=== PATIENT | female | born 1955 | race Caucasian/White ===

== ENCOUNTER 2016-11-02 18:57 | Outpatient (CLI) | payer OTHER ==
--- NOTE | 2016-11-03 14:37 | Ultrasound Report ---
PELVIC ULTRASOUND: 11/02/2016 CLINICAL INDICATION: Postmenopausal bleeding. COMPARISON: 09/04/2014. TECHNIQUE: Transabdominal pelvic ultrasound performed for global evaluation. Transvaginal pelvic ultr asound performed for detailed evaluation. Real-time scanning performed and static images obtained. FINDINGS: The uterus is anteverted, measuring 9.4 x 5.8 x 4.5 cm. The endometrial echo complex is th ickened for a postmenopausal patient, measuring 6 mm. A posterior intramural leiomyoma is present, me asuring 3.0 x 2.6 x 1.8 cm. The ovaries are normal, with the right measuring 2.6 x 2.0 x 1.0 cm, and the left measuring 2.0 x 1.6 x 1.3 cm. No free fluid is present. IMPRESSION: THICKENED ENDOMETRIUM FOR A POSTMENOPAUSAL PATIENT. CORRELATION WITH ENDOMETRIAL BIOPSY IS RECOMMENDED. POSTERIOR INTRAMURAL LEIOMYOMA. JOB #: [id number] EXT JOB #:[id number]
== END 2016-11-02 18:58 | disposition home or self-care (01) ==
LOC: DI 18:57
PROVIDERS: ATTEND Naturopath
DX: R93.8 Abnormal findings on diagnostic imaging of other specified body structures (principal); D25.1 Intramural leiomyoma of uterus
CPT/HCPCS: 76856

== ENCOUNTER 2017-01-02 10:03 | Outpatient (CLI) | payer OTHER ==
--- NOTE | 2017-01-03 13:53 | Mammography Report ---
DIGITAL SCREENING MAMMOGRAM: 01/02/2017 COMPARISON: 09/03/2014. TECHNIQUE: Bilateral digital CC and MLO projections. FINDINGS: There are scattered fibroglandular densities. There is no dominant mass, skin thickening, architectural distortion, suspicious microcalcifications, or significant interval change. IMPRESSION: NEGATIVE. BIRADS CATEGORY 1-NEGATIVE. RECOMMENDATION: SUGGEST ROUTINE SCREENING IN ONE YEAR. STANDARD QUALIFYING STATEMENTS 1. This examination was reviewed with the aid of Computer-Aided Detection (CAD). 2. A negative or benign imaging report should not delay biopsy if clinically suspicious findings are present. Consider surgical consultation if warranted. More than 5% of cancers are not identified by i maging. 3. Dense breasts may obscure an underlying neoplasm. JOB #: [id number] EXT JOB #:[id number]
== END 2017-01-02 10:04 | disposition home or self-care (01) ==
LOC: DI 10:03
PROVIDERS: ATTEND Naturopath
DX: Z12.31 Encounter for screening mammogram for malignant neoplasm of breast (principal)
CPT/HCPCS: 77067

== ENCOUNTER 2017-01-02 10:03 | Outpatient (CLI) | payer OTHER ==
--- NOTE | 2017-01-04 10:07 | DEXA Report ---
DEXA SCAN: 01/02/2017 CLINICAL HISTORY: Rheumatoid arthritis, thyroid replacement therapy, postmenopausal. TECHNIQUE: Dual energy x-ray absorptiometry (DXA) was performed on a [employer] system. Regions measured are the AP spine, femoral neck, and, if needed, forearm. COMPARISON: None. In accordance with the International Society for Clinical Densitometry (ISCD) guidelines, data from previous exams may be reanalyzed using current recommendations and techniques. This is done to allow a more accurate basis for comparison with the current study. FINDINGS The data for the lumbar spine is as follows: REGION BMD (g/cm/cm) T-SCORE Z-SCORE L1 1.302 1.4 1.4 L2 1.412 1.8 1.8 L3 1.636 3.6 3.6 L4 1.478 2.3 2.3 TOTAL 1.461 2.3 2.3 NOTE: All evaluable vertebrae are used for classification. The data for the hip is as follows: REGION BMD (g/cm/cm) T-SCORE Z-SCORE Neck 1.113 0.5 1.0 TOTAL 1.167 1.3 1.3 NOTE: The femoral neck or total proximal femur, whichever is lowest, is used for classification. IMPRESSION: BONE MINERAL DENSITY IN THE LEFT HIP AND LUMBAR SPINE L1 THROUGH L4 ARE WITHIN NORMAL LIMITS FOR AGE. THE WHO CLASSIFICATION BASED ON THE INTERNATIONAL REFERENCE STANDARD IS NORMAL. THE FRACTURE RISK IS LOW. RECOMMENDATION: Patients with diagnosis of osteoporosis or osteopenia should have regular bone mineral density assessment. For those eligible for Medicare, routine testing is allowed once every 2 years. Testing frequency can be increased for patients who have rapidly progressing disease or for those who are receiving medical therapy to restore bone mass. COMMENT: World Health Organization (WHO) definitions for osteoporosis and osteopenia: NORMAL BMD: T-score at -1.0 or higher, fracture risk is low. OSTEOPENIA BMD: T-score between -1.0 and -2.5, fracture risk is increased. OSTEOPOROSIS BMD: T-score at -2.5 or lower, fracture risk high. National Osteoporosis Foundation recommends: 1. Obtain adequate dietary calcium (at least 1200 mg per day) and vitamin D (400 -800 international units per day). 2. Participate, as appropriate, in regular weightbearing and muscle- strengthening exercise. 3. Avoid tobacco use and reduce alcohol and caffeine intake. 4. For more detailed information see the website at www.NOF.org. MTDD
== END 2017-01-02 10:04 | disposition home or self-care (01) ==
LOC: DI 10:03
PROVIDERS: ATTEND Naturopath
DX: Z13.820 Encounter for screening for osteoporosis (principal)
CPT/HCPCS: 77080

== ENCOUNTER 2017-05-09 15:16 | Outpatient (CLI) | payer OTHER ==
--- NOTE | 2017-05-10 18:59 | Ultrasound Report ---
DATE OF SERVICE: 05/09/2017 PELVIC ULTRASOUND: 05/09/2017 CLINICAL INDICATION: Postmenopausal bleeding. TECHNIQUE: Transabdominal pelvic ultrasound performed for global evaluation. Transvaginal pelvic ultrasound performed for detailed evaluation. Real-time scanning performed and static images obtained. The uterus is anteverted, measuring 11.2 x 5.5 x 4.7 cm. The endometrium is thickened for a postmenopausal patient, measuring 7 mm. There is a posterior intramural leiomyoma, measuring 4.2 x 2.9 x 2.4 cm, and an anterior subserosal leiomyoma in the lower uterine segment, measuring 1.6 x 1.5 x 1.4 cm. Neither ovary was confidently identified on transabdominal or transvaginal imaging, but no adnexal mass is identified. No free fluid is present. IMPRESSION: 1. Thickened endometrium for a postmenopausal patient. Correlation with endometrial biopsy is recommended. 2. Two leiomyomas as above. TD: 05/10/2017 19:58
== END 2017-05-09 15:17 | disposition home or self-care (01) ==
LOC: DI 15:16
PROVIDERS: ATTEND Naprapath
DX: R93.8 Abnormal findings on diagnostic imaging of other specified body structures (principal); D25.1 Intramural leiomyoma of uterus; D25.2 Subserosal leiomyoma of uterus
CPT/HCPCS: 76830; 76856

== ENCOUNTER 2017-10-22 12:05 | Outpatient (CLI) | payer OTHER ==
[2017-10-22 12:28] LABS: BILIRUBIN,URINE NEGATIVE (NEGATIVE); GLUCOSE, URINE (UA) NEGATIVE (NEGATIVE); KETONES,URINE (UA) NEGATIVE (NEGATIVE); LEUKOCYTE ESTERASE, URINE NEGATIVE (NEGATIVE); NITRITE,URINE NEGATIVE (NEGATIVE); OCCULT BLOOD,URINE NEGATIVE (NEGATIVE); PROTEIN,URINE NEGATIVE (NEGATIVE); UROBILINOGEN,URINE 0.2 (NORMAL) E.U./dL (NORMAL)
[2017-10-22 12:30] LABS: CLARITY,URINE CLEAR (CLEAR); HCG UR QUAL NEGATIVE
[2017-10-22 13:18] LABS: BASOPHILS # (AUTO) 0.1 10^3/uL (0.0-0.1); BASOPHILS % (AUTO) 0.6 %; EOSINOPHILS # (AUTO) 0.2 10^3/uL (0.0-0.7); EOSINOPHILS % (AUTO) 1.9 %; HGB - HEMOGLOBIN 13.6 g/dL (12.0-16.0); LYMPHOCYTES # (AUTO) 1.8 10^3/uL (1.5-3.5); LYMPHOCYTES % (AUTO) 21.2 %; MEAN CORPUSCULAR HEMOGLOBIN 29.9 pg (27.0-31.0); MEAN CORPUSCULAR VOLUME 90.8 fL (81.0-99.0); MEAN PLATELET VOLUME 9.2 fL (7.9-10.8); MONOCYTES # (AUTO) 0.6 10^3/uL (0.0-1.0); MONOCYTES % (AUTO) 6.6 %; NEUTROPHILS % (AUTO) 69.7 %; PLT - PLATELET COUNT 280 10^3/uL (130-450); RED BLOOD COUNT 4.55 10^6/uL (4.20-5.40); RED CELL DISTRIBUTION WIDTH 13.6 % (12.0-15.0); WHITE BLOOD COUNT 8.7 x10^3/uL (4.8-10.8)
[2017-10-22 13:42] LABS: ALBUMIN 3.8 g/dL (3.2-5.5); BILIRUBIN,TOTAL 0.6 mg/dL (0.2-1.0); CALCIUM 9.1 mg/dL (8.5-10.3); CREATININE 0.6 mg/dL (0.4-1.0); TOTAL PROTEIN 7.7 g/dL (6.7-8.2)
== END 2017-10-22 12:06 | disposition home or self-care (01) ==
LOC: LAB 12:05
PROVIDERS: ATTEND Obstetrics & Gynecology
DX: Z01.812 Encounter for preprocedural laboratory examination (principal); D25.9 Leiomyoma of uterus, unspecified; N95.0 Postmenopausal bleeding
CPT/HCPCS: 36415; 80053; 81003; 81025; 85025; 86850; 86900; 86901

== ENCOUNTER 2017-10-24 06:13 | Day surgery (SDC) | payer OTHER ==
--- NOTE | 2017-10-23 08:04 | PREOP HISTORY & PHYSICAL ---
DATE OF SERVICE: 10/24/2017 Physician: Ronny Roberto MD DIAGNOSES 1. Abnormal uterine bleeding, postmenopausal bleeding. 2. Expanding uterine fibroid. 3. Endometrial biopsy negative for hyperplasia or carcinoma. INTENDED PROCEDURE: Laparoscopic-assisted vaginal hysterectomy with bilateral salpingectomy, possible oophorectomy. HISTORY OF PRESENT ILLNESS: Patient is a 62-year-old , 2, para 1-0-1-1, woman who has experienced several bouts of postmenopausal bleeding, and ultrasound documented 7 mm endometrium as well as two fibroids ranging up to 4 cm in size. Prior endometrial biopsy found no hyperplasia or malignancy. She continued to have postmenopausal bleeding since her endometrial biopsy, and this is disturbing. She wants complete therapy, and, after discussing various methods including hysteroscopy and hysteroscopic myomectomy, desires a hysterectomy. The risks and benefits were reviewed. She is aware of the possibility of bleeding, transfusion, infection, damage to urinary tract and intestines. She has discussed this, her treatment options on several occasions, and is finally settled on a hysterectomy. Informed consent paperwork was signed. The patient underwent menarche at 15, and estimates menopause at 56. Her last Pap smear in 12/2016 was normal. She has no prior history of abnormal Pap smears. PAST MEDICAL HISTORY 1. Patient has hypertension, is well controlled with hydrochlorothiazide. 2. She also has a history of dod-ahujznh-nveefzbip asthma, which is controlled with albuterol inhaler. 3. Hypothyroidism. 4. Patient has a distant history of HSV and HPV. Patient underwent an elective in 1980 at 8 weeks without sequela. The patient underwent a vaginal delivery at 40 weeks afterwards. Patient carries the label of attention deficit disorder. PAST SURGICAL HISTORY: Cholecystectomy. FAMILY HISTORY: No gynecological malignancies. Positive for arthritis, CVA and hypercholesterolemia. SOCIAL HISTORY: Happily . No drug, tobacco or alcohol use; BA degree in sociology; currently unemployed. ALLERGIES/SENSITIVITIES 1. SULFA. 2. CODEINE. 3. DOXYCYCLINE. 4. TRIMETHOPRIM. 5. ERYTHROMYCIN. PATIENT HAS TAKEN AMOXICILLIN AND CEPHALOSPORINS IN THE PAST. REVIEW OF SYSTEMS CONSTITUTIONAL: No malaise, fevers, chills or recent illnesses. HEENT: Negative. CARDIOVASCULAR: Reports no chest pain or rhythm irregularity. RESPIRATORY: Asthma in control. GASTROINTESTINAL: Negative. GENITOURINARY: Reference HPI. URINARY: The patient denies significant stress urinary incontinence or urgency. MUSCULOSKELETAL: Negative. SKIN: Negative. BREASTS: Negative. NEUROLOGIC: Negative. PSYCHOLOGIC: Carries label attention deficit disorder, but currently no symptoms other than a slight increase in anxiety. PHYSICAL EXAMINATION GENERAL: Well-groomed, pleasant demeanor, obese. LUNGS: Clear to auscultation. CARDIOVASCULAR: Regular. No murmur, no gallop. ABDOMEN: Obese, truncal obesity. No hepatosplenomegaly. No significant tenderness. EXTERNAL GENITALIA: No lesions, no atrophy. VAGINA: Small cystorectocele, not symptomatic. No incontinence on cough. CERVIX: No cervicitis. UTERUS: Seems large, probably at 8-10 week size, difficult to estimate due to obesity. ADNEXA: No adnexal tenderness or mass detected. EXTREMITIES: Moves all four extremities well. No pedal edema. SKIN: Increased pigmentation around the vulva. No suspicious lesions anywhere. LABORATORY/DATA: Preop labs pending. ASSESSMENT: The patient has had multiple bouts of postmenopausal bleeding with a negative endometrial biopsy. She has known uterine fibroids, which are probably the source of her bleeding. Bleeding is disruptive, and she desires a permanent solution. Hysteroscopy with hysteroscopic myomectomy was rejected. Operatively, patient has a history of asthma but no bleeding abnormalities. We had a detailed discussion contrasting hysterectomy to hysteroscopy on 2 different occasions. She is aware all surgery carries the risk of blood loss, transfusion, infection and organ damage. Hysterectomy has slightly more risk of blood loss and perforation in general injury of bowel bladder and urinary tract. At this point she is certain about her decision for hysterectomy but understands she can change her mind up until the time of surgery. PLAN: Laparoscopic-assisted vaginal hysterectomy with bilateral salpingectomy. Will spare the ovaries unless obviously diseased. During the nursing preop evaluation patient states that she reacted to Ancef and therefore Cleocin 900 mg IVPB will be given prophylactically prior to surgery given prophylactically. Prophylactic sequential compression boots will also be used. After surgery, will determine if patient needs to remain overnight. Regardless, do not estimate a hospitalization more than 72 hours. TD: 10/22/2017 12:35 SKYLER
[2017-10-24] MEDS ORDERED: ceFAZolin 3 GM/20 ML SYRINGE ONE (06:54)
[2017-10-24] MEDS ORDERED: LACTATED RINGERS 1,000 ML IV ONE ×2 (06:58→09:20)
[2017-10-24] MEDS ORDERED: SCOPOLAMINE PATCH TOP ONE (07:05)
[2017-10-24] MEDS ORDERED: BUPIVACAINE 0.25% PF 30 ML VIAL ONE (07:44)
[2017-10-24] MEDS ORDERED: BUPIVACAINE 0.25%-EPI 1:200000 PF 30 ML VIAL ONE (07:45)
--- NOTE | 2017-10-24 07:46 | OPERATIVE REPORT ---
Operative Report - General Planned Procedure: Laparoscopic assisted vaginal hysterectomy; bilateral salpingectomy; possib Pre-Op Diagnosis: Uterine leiomyoma (expanding); postmenopausal bleeding; prior Negative EMB; Procedure Performed: Laparoscopic assisted vaginal hysterectomy;: Bilateral salpingectomy, Cystoscopy Post Op Diagnosis: Same as above, await pathology - Procedure Note Primary Surgeon: Ronny Roberto MD FACOG Secondary Surgeon: Ronny Lecah MD, FACOG Anesthesia Provider: Roshan Ferrell, certified nurse face hardener Anesthesia Technique: General ET tube Pathology: Uterus and tubes to pathology IV Fluids (mL): 1,300 Estimated Blood Loss (mL): 120 Urine Output (mL): 200 Drain/Tube Type: Other (Mabry catheter, Clear urine) Complications: N0ne
[2017-10-24] MEDS ORDERED: BUPIVACAINE 0.25% PF 30 ML VIAL SUBQ ONE ×2 (08:51)
[2017-10-24] MEDS ORDERED: KETOROLAC 30 MG/ML VIAL IVP ONE (10:15)
[2017-10-24] MEDS ORDERED: ONDANSETRON 4 MG/2 ML VIAL IVP ONE (10:15)
[2017-10-24] MEDS ORDERED: fentaNYL 250 MCG/5 ML VIAL IVP ONE (10:15)
[2017-10-24] MEDS ORDERED: PROPOFOL 200 MG/20 ML VIAL IVP ONE (10:15)
[2017-10-24] MEDS ORDERED: NEOSTIGMINE 1 MG/1 ML 10 ML MDV IVP ONE (10:15)
[2017-10-24] MEDS ORDERED: ROCURONIUM 50 MG/5 ML VIAL IVP ONE (10:15)
[2017-10-24] MEDS ORDERED: GLYCOPYRROLATE 1 MG/5 ML VIAL IVP ONE (10:15)
[2017-10-24] MEDS ORDERED: DEXAMETHASONE 4 MG/ML VIAL IVP ONE (10:15)
[2017-10-24] MEDS ORDERED: MIDAZOLAM 2 MG/2 ML VIAL IVP ONE (10:15)
[2017-10-24] MEDS ORDERED: ESTROGENS, CONJUGATED CREAM 30 GM TUBE ONE (10:20)
[2017-10-24] MEDS ORDERED: ONDANSETRON 4 MG/2 ML VIAL ONE (11:18)
[2017-10-24] MEDS ORDERED: ACETAMINOPHEN 1,000 MG/100 ML 100 ML IV ONE (11:34)
[2017-10-24] MEDS ORDERED: PROMETHAZINE 25 MG/1 ML VIAL ONE (12:03)
[2017-10-24] MEDS ORDERED: IBUPROFEN 600 MG TABLET PO ONE (13:11)
[2017-10-24 16:08] VITALS: BP 142/74
--- NOTE | 2017-10-25 07:05 | OPERATIVE REPORT ---
DATE OF SERVICE: 10/24/2017 Physician: Ronny Roberto MD PREOPERATIVE DIAGNOSES 1. Uterine leiomyoma (expanding). 2. Postmenopausal bleeding. 3. Prior negative endometrial biopsy. 4. Morbid obesity. 5. Body mass index 42. 6. Hypertension. POSTOPERATIVE DIAGNOSES 1. Uterine leiomyoma (expanding). 2. Postmenopausal bleeding. 3. Prior negative endometrial biopsy. 4. Morbid obesity. 5. Body mass index 42. 6. Hypertension. 7. Grade 1 rectocele. PROCEDURES 1. Laparoscopic-assisted vaginal hysterectomy. 2. Bilateral salpingectomy. 3. Cystoscopy. 4. Modified Dominique's culdoplasty. SURGEON: Ronny Roberto MD, FACOG, FICS MANAGER SUPPLY CHAIN PLANNING: Ronny Carson MD, FACOG ANESTHESIOLOGIST: Keke Ferrell CRNA ANESTHESIA TECHNIQUE: General, ET tube placed. ESTIMATED BLOOD LOSS: 120 mL COMPLICATIONS: None. IV FLUIDS: 1300 mL URINE OUTPUT: 200, clear urine. FINDINGS: Exam under anesthesia finds a bulky uterus, but difficult to derive the exact size due to morbid obesity. The cervix is without cervicitis. The uterus itself is retroverted and strongly retroflexed. There is distortion of the vaginal cuff around the cervix. Vagina itself shows a grade 1 rectocele which seems to be midline, and attenuation of the perineal body. CYSTOSCOPY FINDINGS: No incursion into the bladder, and 2 functional ureters. There is no significant cystitis. PATHOLOGY: Tubes and ovaries sent to Pathology Department. IV FLUIDS: 1300 mL URINE: 200, clear. ESTIMATED BLOOD LOSS: Total blood loss 120. COMPLICATIONS: None. DRAINS: Mabry with clear urine; vaginal packing with Premarin cream. TECHNIQUE: Prior to the surgery, I met with patient and her in the same -day surgery waiting room. We reviewed the indications, mechanics, risks and benefits of hysterectomy. She confirmed that she desires a hysterectomy and preservation of the ovaries, unless they appear diseased. The awake patient was brought to the operating room, placed on the table in the supine position. She was uneventfully induced and intubated. She was then moved to the low dorsal lithotomy position on [facility] stirrups. She was prepped and draped in the customary sterile fashion, including Mabry and VCare uterine mobilizer. Timeout briefing was done per protocol. Marcaine was placed in the subumbilical insertion site. A small incision was made with a scalpel, and then bariatric 5 mm VESIcare trocar was used to uneventfully enter the abdomen. Entry was atraumatic, and the cavity insufflated with CO2 gas at 12 mm of pressure. Patient was placed in 30 degrees Trendelenburg. The sites identified for the right and left lower quadrant trocar sites were made. Trocars were uneventfully inserted under direct visualization. The abdominal cavity was assessed, and photos taken. The her left tube was grasped at the fimbriated end and elevated superiorly and medially. The mesosalpinx was then desiccated with LigaSure to its entry at the cornual end of the uterus. Next, the ovarian uterine ligament was desiccated and divided with LigaSure. Round ligament was desiccated and divided with LigaSure. LigaSure was used to dissect the broad ligament down to the level of the vessel insertion at the isthmus. There was a small fibroid hidden below the uterine vessels. The uterine vessels were doubly desiccated and divided. Due to the vascular anomaly caused by the fibroid, further desiccation was needed of the uterine vessel. Care was taken not to drift outside, as to encroach on the ureter. The uterine vessels and ascending/descending branches were controlled with bipolar cautery, were divided. Bladder flap was developed with LigaSure. Next, the LigaSure maneuvers were repeated on the right-hand side without the difficulty encountered by the pedunculated cervical fibroid. The procedure was converted to the vaginal phase. Abdomen was desufflated with CO2 gas. Patient was placed in the high dorsal lithotomy. Morgan retractor was placed, as well as a weighted vaginal speculum. Ila clamps were placed on the cervix, and it was placed on traction. Marcaine 10 mL with epinephrine was placed in small aliquots around the cervix to form a liquid tourniquet. Next, the cervix was circumscribed with a Bovie pencil. The posterior compartment was sharply entered, and short weighted retractor was traded out for a weighted Luther retractor. We continued sharp dissection of the anterior compartment until entry into the peritoneal cavity. The base of the uterosacral ligaments was clamped, transected and transfixed with 0 Vicryl. Next, the cardinal ligaments were clamped, transected , and transfixed with 0 Vicryl. At this point, the lower regions of the Laparoscopic dissection were encountered. The uterus was then removed intact. Two pursestrings of 2-0 Vicryl were placed around the small enterocele to close off the cul-de-sac. Next, the uterosacral sutures were tied together to form a strong bundle of supportive tissue. A strand of that ligature was then passed through the vagina , as to provide superior suspension of the vagina. In turn, the uterosacral ligaments were plicated together in the midline to complete a supportive bundle. Initially, the vagina was closed with a running stitch of 0 chromic; however, the configuration of the upper cuff and posterior fornix of the vagina created narrowing. Therefore, this suture was removed and a reefing stitch of 0 chromic was placed around the top of the vaginal cuff. The area was completely hemostatic. Vaginal cavity was then packed with Premarin-enriched gauze. We returned to the laparoscopic phase of the case, and the abdomen was re- insufflated. All operative sites were inspected and found to be hemostatically secure. The gas was drained from the abdomen. All trocars were removed under visualization. Skin wounds were closed with interrupted 4-0 Monocryl stitches and dressed with Dermabond. Additional Marcaine was placed in the skin wounds for comfort. We moved to video cystoscopy. A 70-degree video cystoscope was then set up and weight balanced. It was uneventfully passed through the urethra without any defects noted. The bladder was systematically inspected. We confirmed normal function through both ureters. At this point, cystoscopy was terminated and Mabry catheter replaced. All sponge, needle and instrument counts were confirmed as correct. Patient was uneventfully aroused from general anesthesia and taken to the recovery room in stable condition. There she will be evaluated to determine if she can go home later today or if she would require care overnight. TD: 10/24/2017 11:18 SKYLER
== END 2017-10-24 06:14 | disposition home or self-care (01) ==
LOC: SDS 06:13
PROVIDERS: ATTEND Obstetrics & Gynecology
PROC: 0UT7FZZ Resection of Bilateral Fallopian Tubes, Via Natural or Artificial Opening With Percutaneous Endoscopic Assistance (ICD-10-PCS; 2017-10-24)
PROC: 0UQF0ZZ Repair Cul-de-sac, Open Approach (ICD-10-PCS; 2017-10-24)
PROC: 0UT9FZZ Resection of Uterus, Via Natural or Artificial Opening With Percutaneous Endoscopic Assistance (ICD-10-PCS; principal; 2017-10-24 07:30)
DX: D25.1 Intramural leiomyoma of uterus (principal); N95.0 Postmenopausal bleeding; N84.0 Polyp of corpus uteri; N80.0 Endometriosis of uterus; N81.6 Rectocele; N81.5 Vaginal enterocele; N81.10 Cystocele, unspecified; I10 Essential (primary) hypertension; J45.909 Unspecified asthma, uncomplicated; E03.9 Hypothyroidism, unspecified; F40.240 Claustrophobia; F98.8 Other specified behavioral and emotional disorders with onset usually occurring in childhood and adolescence; Z79.899 Other long term (current) drug therapy; Z86.19 Personal history of other infectious and parasitic diseases; Z88.1 Allergy status to other antibiotic agents; E66.01 Morbid (severe) obesity due to excess calories; Z68.41 Body mass index [BMI] 40.0-44.9, adult
CPT/HCPCS: 57268; 58552; A9270; J0131; J3010; J3490; J7120

== ENCOUNTER 2019-06-20 09:53 | Outpatient (CLI) | payer OTHER ==
[2019-06-20 17:39] LABS: BILIRUBIN,URINE NEGATIVE (NEGATIVE); GLUCOSE, URINE (UA) NEGATIVE (NEGATIVE); KETONES,URINE (UA) NEGATIVE (NEGATIVE); LEUKOCYTE ESTERASE, URINE NEGATIVE (NEGATIVE); NITRITE,URINE NEGATIVE (NEGATIVE); OCCULT BLOOD,URINE NEGATIVE (NEGATIVE); PH,URINE 7.5 PH (5.0-7.5); PROTEIN,URINE NEGATIVE (NEGATIVE); UROBILINOGEN,URINE 0.2 (NORMAL) E.U./dL (NORMAL)
[2019-06-20 17:41] LABS: CLARITY,URINE CLEAR (CLEAR)
[2019-06-20 17:58] LABS: BASOPHILS % (AUTO) 0.5 %; EOSINOPHILS # (AUTO) 0.2 10^3/uL (0.0-0.7); EOSINOPHILS % (AUTO) 2.2 %; HGB - HEMOGLOBIN 13.5 g/dL (12.0-16.0); LYMPHOCYTES # (AUTO) 1.9 10^3/uL (1.5-3.5); LYMPHOCYTES % (AUTO) 24.9 %; MEAN CORPUSCULAR HEMOGLOBIN 36.9 pg (27.0-31.0); MEAN CORPUSCULAR HGB CONC 37.1 g/dL (32.0-36.0); MEAN CORPUSCULAR VOLUME 99.5 fL (81.0-99.0); MEAN PLATELET VOLUME 11.7 fL (7.9-10.8); MONOCYTES # (AUTO) 0.5 10^3/uL (0.0-1.0); NEUTROPHILS % (AUTO) 65.9 %; PLT - PLATELET COUNT 263 10^3/uL (130-450); RED BLOOD COUNT 3.66 10^6/uL (4.20-5.40); RED CELL DISTRIBUTION WIDTH 13.2 % (12.0-15.0); WHITE BLOOD COUNT 7.6 x10^3/uL (4.8-10.8)
[2019-06-20 18:18] LABS: ALBUMIN 4.1 g/dL (3.2-5.5); ALBUMIN/GLOBULIN RATIO 1.2 (1.0-2.2); ALKALINE PHOSPHATASE 55 IU/L (42-121); ALT ALANINE AMINOTRANSFERASE 27 IU/L (10-60); AST ASPARTATE AMINOTRANSFERASE 20 IU/L (10-42); BILIRUBIN,TOTAL 0.6 mg/dL (0.2-1.0); BUN - BLOOD UREA NITROGEN 13 mg/dL (6-20); CALCIUM 9.2 mg/dL (8.5-10.3); CARBON DIOXIDE - CO2 32 mmol/L (21-32); CHLORIDE 98 mmol/L (101-111); CHOL/HDL RATIO 4.4 (<4.4); CHOLESTEROL 267 mg/dL; CREATININE 0.6 mg/dL (0.4-1.0); CRP HIGH SENSITIVITY 20.2 mg/L; GFR - MDRD 101 (>89); GLUCOSE 96 mg/dL (70-100); HDL CHOLESTEROL 61 mg/dL; LDL CHOLESTEROL,CALCULATED 180 mg/dL; SODIUM 139 mmol/L (135-145); TOTAL PROTEIN 7.4 g/dL (6.7-8.2); VLDL CHOLESTEROL 26 mg/dL
[2019-06-20 18:24] LABS: THYROID STIMULATING HORMONE 3.46 uIU/mL (0.34-5.60)
[2019-06-20 18:26] LABS: FREE T4 (FREE THYROXINE) 0.76 ng/dL (0.58-1.64)
[2019-06-20 18:48] LABS: HB2 TOTAL 14.2 g/dL; HEMOGLOBIN A1C 0.5 g/dL; HEMOGLOBIN A1C % 5.4 % (4.6-6.2)
== END 2019-06-20 09:54 | disposition home or self-care (01) ==
LOC: LAB.S 09:53
PROVIDERS: ATTEND Naturopath
DX: Z13.0 Encounter for screening for diseases of the blood and blood-forming organs and certain disorders involving the immune mechanism (principal); E03.9 Hypothyroidism, unspecified; Z13.1 Encounter for screening for diabetes mellitus; Z13.6 Encounter for screening for cardiovascular disorders; Z13.21 Encounter for screening for nutritional disorder; Z79.890 Hormone replacement therapy; Z13.220 Encounter for screening for lipoid disorders; I10 Essential (primary) hypertension; R60.9 Edema, unspecified
CPT/HCPCS: 36415; 80053; 80061; 81001; 81003; 82306; 82672; 83036; 83721; 84439; 84443; 84481; 85025; 86141

== ENCOUNTER 2019-12-05 08:47 | Outpatient (CLI) | payer OTHER ==
[2019-12-05 15:32] LABS: BASOPHILS # (AUTO) 0.1 10^3/uL (0.0-0.1); BASOPHILS % (AUTO) 0.6 %; EOSINOPHILS # (AUTO) 0.2 10^3/uL (0.0-0.7); EOSINOPHILS % (AUTO) 2.7 %; HGB - HEMOGLOBIN 13.1 g/dL (12.0-16.0); LYMPHOCYTES # (AUTO) 2.1 10^3/uL (1.5-3.5); LYMPHOCYTES % (AUTO) 25.8 %; MEAN CORPUSCULAR HEMOGLOBIN 29.9 pg (27.0-31.0); MEAN CORPUSCULAR VOLUME 96.3 fL (81.0-99.0); MEAN PLATELET VOLUME 11.4 fL (7.9-10.8); MONOCYTES # (AUTO) 0.5 10^3/uL (0.0-1.0); MONOCYTES % (AUTO) 6.6 %; NEUTROPHILS # (AUTO) 5.2 10^3/uL (1.5-6.6); NEUTROPHILS % (AUTO) 63.9 %; PLT - PLATELET COUNT 248 10^3/uL (130-450); RED BLOOD COUNT 4.38 10^6/uL (4.20-5.40); RED CELL DISTRIBUTION WIDTH 13.2 % (12.0-15.0); WHITE BLOOD COUNT 8.2 x10^3/uL (4.8-10.8)
== END 2019-12-05 08:48 | disposition home or self-care (01) ==
LOC: LAB.S 08:47
PROVIDERS: ATTEND Naturopath
DX: Z00.01 Encounter for general adult medical examination with abnormal findings (principal); Z13.6 Encounter for screening for cardiovascular disorders; R53.83 Other fatigue
CPT/HCPCS: 36415; 82607; 82746; 85025; 85651; 86140

== ENCOUNTER 2020-07-02 08:46 | Outpatient (CLI) | payer OTHER ==
[2020-07-02 15:40] LABS: BASOPHILS # (AUTO) 0.1 10^3/uL (0.0-0.1); BASOPHILS % (AUTO) 0.8 %; EOSINOPHILS # (AUTO) 0.2 10^3/uL (0.0-0.7); EOSINOPHILS % (AUTO) 2.4 %; HCT - HEMATOCRIT 43.3 % (37.0-47.0); LYMPHOCYTES % (AUTO) 25.6 %; MEAN CORPUSCULAR HEMOGLOBIN 31.7 pg (27.0-31.0); MEAN CORPUSCULAR HGB CONC 32.3 g/dL (32.0-36.0); MEAN CORPUSCULAR VOLUME 98.2 fL (81.0-99.0); MEAN PLATELET VOLUME 11.3 fL (7.9-10.8); MONOCYTES # (AUTO) 0.4 10^3/uL (0.0-1.0); MONOCYTES % (AUTO) 5.5 %; NEUTROPHILS # (AUTO) 5.1 10^3/uL (1.5-6.6); NEUTROPHILS % (AUTO) 65.4 %; PLT - PLATELET COUNT 261 10^3/uL (130-450); RED BLOOD COUNT 4.41 10^6/uL (4.20-5.40); RED CELL DISTRIBUTION WIDTH 13.2 % (12.0-15.0); WHITE BLOOD COUNT 7.8 x10^3/uL (4.8-10.8)
[2020-07-02 16:03] LABS: ALBUMIN/GLOBULIN RATIO 1.1 (1.0-2.2); ALKALINE PHOSPHATASE 56 IU/L (42-121); ALT ALANINE AMINOTRANSFERASE 27 IU/L (10-60); AST ASPARTATE AMINOTRANSFERASE 22 IU/L (10-42); BILIRUBIN,TOTAL 0.5 mg/dL (0.2-1.0); BUN - BLOOD UREA NITROGEN 14 mg/dL (6-20); CALCIUM 9.3 mg/dL (8.5-10.3); CARBON DIOXIDE - CO2 32 mmol/L (21-32); CHLORIDE 96 mmol/L (101-111); CHOL/HDL RATIO 4.4 (<4.4); CHOLESTEROL 264 mg/dL; CREATININE 0.6 mg/dL (0.4-1.0); CRP HIGH SENSITIVITY 11.8 mg/L; GFR - MDRD 101 (>89); GLUCOSE 100 mg/dL (70-100); HDL CHOLESTEROL 60 mg/dL; LDL CHOLESTEROL,CALCULATED 160 mg/dL; LDL/HDL RATIO 2.7 (<4.4); POTASSIUM 3.3 mmol/L (3.5-5.0); SODIUM 138 mmol/L (135-145); TOTAL PROTEIN 7.5 g/dL (6.7-8.2); TRIGLYCERIDES 220 mg/dL; VLDL CHOLESTEROL 44 mg/dL
[2020-07-02 20:04] LABS: ESTIMATED AVERAGE GLUCOSE 111 mg/dL (70-100); HEMOGLOBIN A1c% 5.5 % (4.27-6.07)
== END 2020-07-02 08:47 | disposition home or self-care (01) ==
LOC: LAB.S 08:46
PROVIDERS: ATTEND Naturopath
DX: I89.0 Lymphedema, not elsewhere classified (principal); Z13.1 Encounter for screening for diabetes mellitus; Z13.220 Encounter for screening for lipoid disorders; Z13.6 Encounter for screening for cardiovascular disorders; R53.83 Other fatigue; I10 Essential (primary) hypertension
CPT/HCPCS: 36415; 80053; 80061; 82607; 82672; 82746; 83036; 83721; 85025; 85651; 86141

== ENCOUNTER 2020-12-14 11:32 | Outpatient (CLI) | payer OTHER ==
[2020-12-14 15:17] LABS: BASOPHILS # (AUTO) 0.1 10^3/uL (0.0-0.1); BASOPHILS % (AUTO) 0.6 %; EOSINOPHILS # (AUTO) 0.2 10^3/uL (0.0-0.7); EOSINOPHILS % (AUTO) 2.7 %; HCT - HEMATOCRIT 38.1 % (37.0-47.0); LYMPHOCYTES # (AUTO) 2.5 10^3/uL (1.5-3.5); MEAN CORPUSCULAR HEMOGLOBIN 37.4 pg (27.0-31.0); MEAN CORPUSCULAR HGB CONC 36.7 g/dL (32.0-36.0); MEAN CORPUSCULAR VOLUME 101.9 fL (81.0-99.0); MEAN PLATELET VOLUME 11.6 fL (7.9-10.8); MONOCYTES # (AUTO) 0.5 10^3/uL (0.0-1.0); NEUTROPHILS % (AUTO) 60.2 %; PLT - PLATELET COUNT 240 10^3/uL (130-450); RED BLOOD COUNT 3.74 10^6/uL (4.20-5.40); RED CELL DISTRIBUTION WIDTH 13.5 % (12.0-15.0); SLIDE REVIEW? Indicated; WHITE BLOOD COUNT 8.4 x10^3/uL (4.8-10.8)
[2020-12-14 15:42] LABS: THYROID STIMULATING HORMONE 1.31 uIU/mL (0.34-5.60)
[2020-12-14 15:44] LABS: FREE T4 (FREE THYROXINE) 1.22 ng/dL (0.58-1.64)
[2020-12-14 15:45] LABS: FREE T3 3.22 pg/mL (2.5-3.9)
[2020-12-14 16:02] LABS: CRP HIGH SENSITIVITY 12.5 mg/L; POTASSIUM 3.9 mmol/L (3.5-5.0)
[2020-12-14 17:26] LABS: PLATELET ESTIMATE, MANUAL NORMAL (130-450,000) (NORMAL); PLATELET MORPHOLOGY 1+ GIANT PLATELETS (NORMAL); RBC MORPHOLOGY (MULTIPLE) NORMAL APPEARANCE (NORMAL)
== END 2020-12-14 11:33 | disposition home or self-care (01) ==
LOC: LAB.S 11:32
PROVIDERS: ATTEND Naturopath
DX: E03.9 Hypothyroidism, unspecified (principal); R53.83 Other fatigue; R79.82 Elevated C-reactive protein (CRP); D53.9 Nutritional anemia, unspecified; R70.0 Elevated erythrocyte sedimentation rate; E87.6 Hypokalemia
CPT/HCPCS: 36415; 82607; 82746; 84132; 84439; 84443; 84481; 85025; 85651; 86141

== ENCOUNTER 2021-01-14 11:47 | Outpatient (CLI) | payer OTHER ==
[2021-01-14 14:55] LABS: CHOL/HDL RATIO 4.9 (<4.4); CHOLESTEROL 285 mg/dL; GLUCOSE 93 mg/dL (70-100); HDL CHOLESTEROL 58 mg/dL; LDL CHOLESTEROL,CALCULATED 191 mg/dL; LDL/HDL RATIO 3.3 (<4.4); TRIGLYCERIDES 179 mg/dL; VLDL CHOLESTEROL 36 mg/dL
== END 2021-01-14 11:48 | disposition home or self-care (01) ==
LOC: LAB.S 11:47
PROVIDERS: ATTEND Naturopath
DX: Z01.84 Encounter for antibody response examination (principal); Z13.1 Encounter for screening for diabetes mellitus; R05.9 Cough, unspecified
CPT/HCPCS: 36415; 80061; 81599; 82947; 83721; 85651; 86769

== ENCOUNTER 2021-05-30 11:06 | Outpatient (CLI) | payer OTHER ==
[2021-05-30 15:54] LABS: ALBUMIN 4.1 g/dL (3.2-5.5); ALBUMIN/GLOBULIN RATIO 1.2 (1.0-2.2); ALKALINE PHOSPHATASE 55 IU/L (42-121); ALT ALANINE AMINOTRANSFERASE 35 IU/L (10-60); AST ASPARTATE AMINOTRANSFERASE 29 IU/L (10-42); BILIRUBIN,TOTAL 0.5 mg/dL (0.2-1.0); BUN - BLOOD UREA NITROGEN 12 mg/dL (6-20); CALCIUM 9.3 mg/dL (8.5-10.3); CARBON DIOXIDE - CO2 32 mmol/L (21-32); CHLORIDE 96 mmol/L (101-111); CHOLESTEROL 263 mg/dL; CREATININE 0.6 mg/dL (0.4-1.0); CRP HIGH SENSITIVITY 17.3 mg/L; GFR - MDRD 101 (>89); GLUCOSE 93 mg/dL (70-100); HDL CHOLESTEROL 65 mg/dL; LDL CHOLESTEROL,CALCULATED 162 mg/dL; LDL/HDL RATIO 2.5 (<4.4); POTASSIUM 3.8 mmol/L (3.5-5.0); SODIUM 138 mmol/L (135-145); TOTAL PROTEIN 7.4 g/dL (6.7-8.2); TRIGLYCERIDES 182 mg/dL; VLDL CHOLESTEROL 36 mg/dL
[2021-05-30 16:29] LABS: THYROID STIMULATING HORMONE 2.14 uIU/mL (0.34-5.60)
[2021-05-30 16:31] LABS: FREE T3 3.28 pg/mL (2.5-3.9); FREE T4 (FREE THYROXINE) 0.95 ng/dL (0.58-1.64)
[2021-05-31 05:32] LABS: ESTRADIOL 22 pg/mL
[2021-05-31 15:03] LABS: FOLATE > 49.60 ng/mL (5.90 - >24.8)
== END 2021-05-30 11:07 | disposition home or self-care (01) ==
LOC: LAB.S 11:06
PROVIDERS: ATTEND Naturopath
DX: Z00.01 Encounter for general adult medical examination with abnormal findings (principal); Z13.0 Encounter for screening for diseases of the blood and blood-forming organs and certain disorders involving the immune mechanism; Z13.1 Encounter for screening for diabetes mellitus; Z13.21 Encounter for screening for nutritional disorder; Z13.220 Encounter for screening for lipoid disorders; Z13.29 Encounter for screening for other suspected endocrine disorder; Z13.6 Encounter for screening for cardiovascular disorders; R53.83 Other fatigue
CPT/HCPCS: 36415; 80053; 80061; 82607; 82670; 82672; 82746; 83036; 83721; 84439; 84443; 84481; 85025; 86141

== ENCOUNTER 2021-06-01 13:31 | Outpatient (CLI) | payer OTHER ==
[2021-06-01 20:30] LABS: BASOPHILS # (AUTO) 0.1 10^3/uL (0.0-0.1); BASOPHILS % (AUTO) 0.6 %; EOSINOPHILS # (AUTO) 0.2 10^3/uL (0.0-0.7); EOSINOPHILS % (AUTO) 2.2 %; HCT - HEMATOCRIT 40.6 % (37.0-47.0); HGB - HEMOGLOBIN 13.2 g/dL (12.0-16.0); LYMPHOCYTES # (AUTO) 2.4 10^3/uL (1.5-3.5); LYMPHOCYTES % (AUTO) 29.8 %; MEAN CORPUSCULAR HEMOGLOBIN 30.7 pg (27.0-31.0); MEAN CORPUSCULAR HGB CONC 32.5 g/dL (32.0-36.0); MEAN CORPUSCULAR VOLUME 94.4 fL (81.0-99.0); MEAN PLATELET VOLUME 11.7 fL (7.9-10.8); MONOCYTES # (AUTO) 0.5 10^3/uL (0.0-1.0); MONOCYTES % (AUTO) 6.6 %; NEUTROPHILS % (AUTO) 60.4 %; PLT - PLATELET COUNT 248 10^3/uL (130-450); RED CELL DISTRIBUTION WIDTH 12.9 % (12.0-15.0); WHITE BLOOD COUNT 8.2 x10^3/uL (4.8-10.8)
[2021-06-01 21:00] LABS: ESTIMATED AVERAGE GLUCOSE 108 mg/dL (70-100); HEMOGLOBIN A1c% 5.4 % (4.27-6.07)
== END 2021-06-01 13:32 | disposition home or self-care (01) ==
LOC: LAB.S 13:31
PROVIDERS: ATTEND Naturopath
DX: Z00.01 Encounter for general adult medical examination with abnormal findings (principal); Z13.0 Encounter for screening for diseases of the blood and blood-forming organs and certain disorders involving the immune mechanism; Z13.1 Encounter for screening for diabetes mellitus; Z13.21 Encounter for screening for nutritional disorder; Z13.220 Encounter for screening for lipoid disorders; Z13.29 Encounter for screening for other suspected endocrine disorder; Z13.6 Encounter for screening for cardiovascular disorders; R53.83 Other fatigue
CPT/HCPCS: 36415; 83036; 85025; 85651

== ENCOUNTER 2022-06-12 07:00 | Outpatient (CLI) | payer OTHER | END 2022-06-12 23:59 | disposition home or self-care (01) | LOC: LAB.S 07:00 | PROVIDERS: ATTEND Physician Assistant | DX: R30.0 Dysuria (principal) | CPT/HCPCS: 87086 ==

== ENCOUNTER 2022-06-29 15:42 | Outpatient (CLI) | payer OTHER ==
--- NOTE | 2022-06-29 20:50 | XRAY Report ---
PROCEDURE: Elbow 3 View RT INDICATIONS: RIGHT ELBOW PAIN TECHNIQUE: 3 views of the elbow were acquired. COMPARISON: None FINDINGS: Bones: No fractures or dislocations. No suspicious bony lesions. Soft tissues: No elbow joint effusion. No suspicious soft tissue calcifications. IMPRESSION: No acute osseous abnormality. If symptoms persist, follow-up radiographs and/or CT or MRI may be help ful for further evaluation. Reviewed by: Yvan Chicas MD on 06/29/2022 8:48 PM PDT Approved by: Yvan Chicas MD on 06/29/2022 8:48 PM PDT Station ID: [id number]
== END 2022-06-29 15:43 | disposition home or self-care (01) ==
LOC: DI.S 15:42
PROVIDERS: ATTEND Naturopath
DX: M25.521 Pain in right elbow (principal)

== ENCOUNTER 2023-05-06 08:50 | Outpatient (CLI) | payer OTHER ==
--- NOTE | 2023-05-06 13:46 | Ultrasound Report ---
PROCEDURE: Carotid Doppler Complete INDICATIONS: HYPERCHOLESTEROLEMIA, SCREENING FOR CARDIOVASCULAR TECHNIQUE: Color and pulse Doppler interrogation was performed of both carotid systems, with image documentation and velocity measurements. COMPARISON: None. FINDINGS: Right side: Brachial blood pressure: 159 mm Hg. Common carotid artery peak systolic velocity: 71 cm/sec. Internal carotid artery peak systolic velocity: 107 cm/sec. Internal carotid artery end diastolic velocity: 45 cm/sec. External carotid artery peak systolic velocity: 89 cm/sec. ICA/CCA peak systolic ratio: 1.5 . Cantu scale imaging description: No significant atherosclerotic plaque. Percent internal carotid artery stenosis: No hemodynamically significant stenosis. Vertebral artery: Flow direction is antegrade. Left side: Brachial blood pressure: 168 mm Hg. Common carotid artery peak systolic velocity: 77 cm/sec. Internal carotid artery peak systolic velocity: 104 cm/sec. Internal carotid artery end diastolic velocity: 46 cm/sec. External carotid artery peak systolic velocity: 38 cm/sec. ICA/CCA peak systolic ratio: 1.3 . Cantu scale imaging description: Minimal atherosclerotic plaque at the carotid bulb. Percent internal carotid artery stenosis: No hemodynamically significant stenosis. Vertebral artery: Flow direction is antegrade. IMPRESSION: 1. In the right internal carotid artery, there is no hemodynamically significant stenosis based on pe ak systolic velocity criteria. 2. In the left internal carotid artery, there is no hemodynamically significant stenosis based on pea k systolic velocity criteria. There is minimal atherosclerotic plaque at the carotid bulb. 3. Antegrade blood flow within the right vertebral artery. 4. Antegrade blood flow within the left vertebral artery. The estimate of stenosis included in the report of the imaging study was calculated using the [place]-end orsed standards of carotid artery stenosis. Reviewed by: Wilmer Matias MD on 05/06/2023 1:45 PM PST Approved by: Wilmer Matias MD on 05/06/2023 1:45 PM PST Station ID: [id number]
--- NOTE | 2023-05-06 13:59 | Ultrasound Report ---
PROCEDURE: Aorta Screening INDICATIONS: HYPERCHOLESTEROLEMIA, SCREENING FOR CARDIOVASCULAR TECHNIQUE: Real time scanning was performed of the aorta and iliac arteries, with image documentatio n. COMPARISON: None. FINDINGS: Aorta: Proximal aortic diameter measures 2.8 x 2.7 cm. Mid-aorta measures 1.8 x 1.9 cm. Distal aor tic diameter is 1.5 x 1.4 cm. Iliac arteries: Right common iliac artery measures 1.1 x 1.1 cm. Left common iliac artery measures 1.3 x 1.2 cm. IMPRESSION: 1.No abdominal aortic aneurysm. Proximal abdominal aorta is ectatic measuring 2.8 x 2.7 cm. Recommend follow-up imaging in 5 years. 2.Bilateral common iliac arteries are normal in caliber, where visualized. Recommended intervals for follow-up imaging of ectatic aortas and abdominal aortic aneurysms, per ACR consensus guidelines: 2.5-2.9 cm: 5 years 3.0-3.4 cm: 3 years 3.5-3.9 cm: 2 years 4.0-4.4 cm: 1 year 4.5-4.9 cm: 6 months + endovascular referral 5.0-5.5 cm: 3-6 months + endovascular referral Reviewed by: Wilmer Matias MD on 05/06/2023 1:57 PM PST Approved by: Wilmer Matias MD on 05/06/2023 1:57 PM PST Station ID: [id number]
== END 2023-05-06 08:51 | disposition home or self-care (01) ==
LOC: DI 08:50
PROVIDERS: ATTEND Naturopath
DX: E78.00 Pure hypercholesterolemia, unspecified (principal); E78.01 Familial hypercholesterolemia; Z13.6 Encounter for screening for cardiovascular disorders; I77.811 Abdominal aortic ectasia; I65.22 Occlusion and stenosis of left carotid artery
CPT/HCPCS: 93880

== ENCOUNTER 2023-05-22 10:48 | Outpatient (CLI) | payer OTHER ==
--- NOTE | 2023-05-23 11:31 | Mammography Report ---
BILATERAL DIGITAL SCREENING MAMMOGRAM 3D/2D WITH EXAGGERATED CC: 05/22/2023 CLINICAL: Routine screening. Family history of breast cancer. Comparison is made to exams dated: 02/27/2022 mammogram, 11/26/2019 mammogram, and 01/02/2017 mammogra m - [facility]. There are scattered areas of fibroglandular density in both breasts (category b / 25%-50% glandular t issue). No significant masses, calcifications, or other findings are seen in either breast. There has been no significant interval change. IMPRESSION: NEGATIVE There is no mammographic evidence of malignancy. A 1 year screening mammogram is recommended. Based on the Tyrer Cuzick model (a risk assessment model) the patient's lifetime risk is 10.3% and he r 10 year risk is 5.2%. According to the ACR, ACS, and NCCN guidelines, an annual breast MRI exam isaac ng with mammogram is recommended if the patient's lifetime risk is 20% or greater. This exam was interpreted at Station ID: [id number]. NOTE: For mammograms, a report in lay terms will be sent to the patient. Approximately 15% of breast malignancies will not be visualized mammographically. In the management of a palpable breast mass, a negative mammogram must not discourage biopsy of a clinically suspicious lesion. Electronically Signed By: Yvan condon/stephanie:05/22/2023 12:51:42 letter sent: No_Letter ACR BI-RADS Category 1: Negative 3341F PARENCHYMAL PATTERN: (A) - The breast(s) demonstrate(s) scattered fibroglandular densities. BI-RADS CATEGORY: (1) - 1 Mammogram [id number] 1 year screening LATERALITY: (B)
== END 2023-05-22 10:49 | disposition home or self-care (01) ==
LOC: DI.S 10:48
PROVIDERS: ATTEND Naturopath
DX: Z12.31 Encounter for screening mammogram for malignant neoplasm of breast (principal); R92.323 Mammographic fibroglandular density, bilateral breasts; Z80.3 Family history of malignant neoplasm of breast

== ENCOUNTER 2023-11-09 09:47 | Outpatient (CLI) | payer OTHER ==
[2023-11-09 10:03] LABS: BASOPHILS % (AUTO) 0.5 %; EOSINOPHILS # (AUTO) 0.2 10^3/uL (0.0-0.7); EOSINOPHILS % (AUTO) 2.7 %; HCT - HEMATOCRIT 41.6 % (37.0-47.0); HGB - HEMOGLOBIN 13.1 g/dL (12.0-16.0); LYMPHOCYTES # (AUTO) 2.3 10^3/uL (1.5-3.5); LYMPHOCYTES % (AUTO) 28.8 %; MEAN CORPUSCULAR HGB CONC 31.5 g/dL (32.0-36.0); MEAN CORPUSCULAR VOLUME 95.2 fL (81.0-99.0); MEAN PLATELET VOLUME 10.9 fL (7.9-10.8); MONOCYTES # (AUTO) 0.5 10^3/uL (0.0-1.0); MONOCYTES % (AUTO) 6.2 %; NEUTROPHILS # (AUTO) 4.9 10^3/uL (1.5-6.6); NEUTROPHILS % (AUTO) 61.5 %; PLT - PLATELET COUNT 222 10^3/uL (130-450); RED BLOOD COUNT 4.37 10^6/uL (4.20-5.40); RED CELL DISTRIBUTION WIDTH 12.8 % (12.0-15.0); WHITE BLOOD COUNT 7.9 x10^3/uL (4.8-10.8)
[2023-11-09 10:18] LABS: ALBUMIN 4.2 g/dL (3.2-5.5); ALBUMIN/GLOBULIN RATIO 1.4 (1.0-2.2); BILIRUBIN,TOTAL 0.4 mg/dL (0.2-1.0); CALCIUM 9.7 mg/dL (8.5-10.3); CREATININE 0.6 mg/dL (0.6-1.3); POTASSIUM 3.9 mmol/L (3.5-4.5); TOTAL PROTEIN 7.1 g/dL (6.4-8.9)
[2023-11-09 10:32] LABS: THYROID STIMULATING HORMONE 1.49 uIU/mL (0.34-5.60)
== END 2023-11-09 09:48 | disposition home or self-care (01) ==
LOC: LAB 09:47
PROVIDERS: ATTEND Physician Assistant
DX: E03.9 Hypothyroidism, unspecified (principal)
CPT/HCPCS: 36415; 80053; 82465; 84443; 85025